=== PATIENT | female | born 1975 | race Caucasian/White ===

== ENCOUNTER 2020-10-25 21:15 | Inpatient (IN) | payer OTHER ==
[~2020-10-25] VITALS: Ht 165.1 cm; Wt 74.8 kg
[2020-10-25] MEDS ORDERED: MECLIZINE HCL 25 MG TABLET PO ONE (21:30)
--- NOTE | 2020-10-25 21:32 | NUR ---
Patient walked into ER with steady gait speaking with clear speech c/o sudden onset of dizziness that started 2hrs [employer]. Denies N/V.
--- NOTE | 2020-10-25 21:50 | NUR ---
Patient out of unit for CT scan via [facility].
[2020-10-25 21:54] LABS: BASOPHILS % (AUTO) 0.4 % (0.0-2.0); EOSINOPHILS # (AUTO) 0.1 K/uL (0.0-0.7); EOSINOPHILS % (AUTO) 1.1 % (0.0-7.0); HEMATOCRIT 38.7 % (31.2-41.9); LYMPHOCYTES # (AUTO) 2.3 K/uL (20.0-40.0); MEAN CORPUSCULAR HEMOGLOBIN 30.5 uug (24.7-32.8); MEAN CORPUSCULAR HGB CONC 34 g/dL (32.3-35.6); MONOCYTES # (AUTO) 0.6 K/uL (2.0-10.0); NEUTROPHILS # (AUTO) 3.4 K/uL (1.8-8.9); NEUTROPHILS % (AUTO) 52.5 % (38.5-71.5); PLATELET COUNT (AUTO) 381 K/uL (179-408); RED BLOOD CELL COUNT(AUTO) 4.25 MIL/uL (3.63-4.92); WHITE BLOOD COUNT (AUTO) 6.4 K/uL (3.8-11.8)
[2020-10-25 21:59] LABS: CARBON DIOXIDE 27 mmol/L (21-32); CHLORIDE 104 mmol/L (98-107); CREATININE 0.7 mg/dL (0.6-1.3); GLUCOSE 110 mg/dL (74-106); POTASSIUM 3.5 mmol/L (3.5-5.1); UREA NITROGEN, BLOOD 12 mg/dL (7-18)
[2020-10-25] MEDS ORDERED: ONDANSETRON 4 MG/2 ML VIAL ONE ×2 (21:59→22:35)
[2020-10-25] MEDS ORDERED: IV NORMAL SALINE 250 ML IV ONE (22:00)
[2020-10-25] MEDS ORDERED: SWABABLE VALVE TRANSFER SET EA MC ONE (22:00)
[2020-10-25] MEDS ORDERED: IOHEXOL 350 100 ML INFUS..BTL ONE (22:00)
[2020-10-25 22:05] LABS: ETHANOL < 3 MG/DL (0-0)
[2020-10-25 22:08] LABS: ALANINE AMINOTRANSFERASE 37 U/L (14-59); ALKALINE PHOSPHATASE 73 U/L (50-136); ASPARTATE AMINOTRANSFERASE 22 U/L (15-37); BILIRUBIN,DIRECT 0.1 mg/dL (0.0-0.2); BILIRUBIN,TOTAL 0.2 mg/dL (0.2-1.0); TOTAL PROTEIN, SERUM 7.4 g/dL (6.4-8.2)
--- NOTE | 2020-10-25 22:09 | NUR ---
Patient back from ct scan with no distress noted.
--- NOTE | 2020-10-25 22:10 | NUR ---
Tele neurologist into eval patient via [facility] [employer].
[2020-10-25] MEDS ORDERED: ONDANSETRON 4 MG/2 ML VIAL IV ONE ×2 (22:30→22:45)
[2020-10-25 23:56] LABS: *BILIRUBIN,URIN NEGATIVE (NEGATIVE); *CLARITY,URINE CLEAR (CLEAR); *COLOR,URINE YELLOW (YELLOW); *KETONES,URINE NEGATIVE (NEGATIVE); *UROBILINOGEN,URINE 0.2 E.U./dl (NORMAL); LEUKOCYTE ESTERASE ,URINE TRACE (NEGATIVE); NITRITE, URINE NEGATIVE (NEGATIVE); PH,URINE 7.5 (5.0-8.0); UGLUCOSE NEGATIVE (NEGATIVE)
[2020-10-25 23:59] LABS: *BLOOD, URINE TRACE (NEGATIVE)
[2020-10-26 00:10] LABS: BACTERIA,URINE NONE SEEN /HPF (NONE SEEN); SQUAMOUS EPITHELIAL CELL,UR FEW /HPF (NONE SEEN); WBC,URINE 0-3 /HPF (0-3)
[2020-10-26 00:11] LABS: *URINE HCG, QUAL NEGATIVE (NEGATIVE)
[2020-10-26 00:16] LABS: *AMPHETAMINE, URINE NEGATIVE (NEGATIVE); *CANNABINOID, URINE NEGATIVE (NEGATIVE); *COCCAINE, URINE NEGATIVE (NEGATIVE); *OPIATE, URINE NEGATIVE (NEGATIVE); *PHENCYCLIDINE SCREEN,URINE NEGATIVE (NEGATIVE)
--- NOTE | 2020-10-26 01:25 | NUR ---
Epic panel call placed, spoke to Lloyd , he stated she will get a hold of Dr. Gonsales for admitting.
--- NOTE | 2020-10-26 01:46 | NUR ---
2nd call made to [employer] got panel call. Awaiting for return call from Dr. Gonsales.
--- NOTE | 2020-10-26 01:54 | NUR ---
Dr. Markham on panel call with Dr. Gonsales. Patient accepted for admission to Tele Unit. Dx Intractable Dizziness.
--- NOTE | 2020-10-26 02:39 | NUR ---
Pt. admitted to Tele unit, room 310, under care of Dr. Gonsales. Belongs List completed.
[2020-10-26 03:31] VITALS: BP 115/67
[2020-10-26] MEDS ORDERED: ACETAMINOPHEN 325 MG TABLET PO PRN (03:45)
[2020-10-26] MEDS ORDERED: ONDANSETRON 4 MG/2 ML VIAL IV PRN (03:45)
[2020-10-26 04:25] VITALS: BP 101/73
[2020-10-26 05:50] LABS: BASOPHILS % (AUTO) 0.3 % (0.0-2.0); EOSINOPHILS % (AUTO) 0.4 % (0.0-7.0); HEMATOCRIT 38.5 % (31.2-41.9); HEMOGLOBIN 12.9 g/dL (10.9-14.3); LYMPHOCYTES # (AUTO) 1.5 K/uL (20.0-40.0); MEAN CORPUSCULAR HEMOGLOBIN 30.1 uug (24.7-32.8); MEAN CORPUSCULAR HGB CONC 34 g/dL (32.3-35.6); MEAN CORPUSCULAR VOLUME 89.9 fL (75.5-95.3); MONOCYTES # (AUTO) 0.6 K/uL (2.0-10.0); MONOCYTES % (AUTO) 8.5 % (0.0-11.0); NEUTROPHILS # (AUTO) 4.7 K/uL (1.8-8.9); NEUTROPHILS % (AUTO) 68.8 % (38.5-71.5); PLATELET COUNT (AUTO) 407 K/uL (179-408); RED BLOOD CELL COUNT(AUTO) 4.28 MIL/uL (3.63-4.92); WHITE BLOOD COUNT (AUTO) 6.8 K/uL (3.8-11.8)
[2020-10-26 06:03] LABS: BILIRUBIN,TOTAL 0.3 mg/dL (0.2-1.0); CREATININE 0.7 mg/dL (0.6-1.3); MAGNESIUM 2.3 mg/dL (1.8-2.4); PHOSPHOROUS 3.1 mg/dL (2.5-4.9); POTASSIUM 4.4 mmol/L (3.5-5.1); TOTAL PROTEIN, SERUM 7.3 g/dL (6.4-8.2)
[2020-10-26 06:11] LABS: THYROID STIMULATING HORMONE 1.647 mIU/mL (0.358-3.740)
[2020-10-26] MEDS ORDERED: MECLIZINE HCL 25 MG TABLET PO PRN (06:30)
--- NOTE | 2020-10-26 06:58 | NUR ---
Pt admitted to room 310; neuro and CV stable; needs attended; admission procedures done; continue to monitor; needs attended.
--- NOTE | 2020-10-26 08:00 | NUR ---
RECEIVED PATIENT IN BED AWAKE ALERT AND ORIENTED ON ROOM AIR WITH NO SHORTNESS OF BREATH AT THIS TIME DENIES FEELING DIZZY TELE IS SR CALL LIGHTS AND HER PERSONAL BELONGINGS ARE WITHIN EASY REACH MADE COMFORTABLE NOT IN DISTRESS AT THIS TIME
--- NOTE | 2020-10-26 09:25 | NUR ---
SPOKE WITH PATIENT RE HOME MEDICATIONS STATED DID NOT TAKE ANY MEDS.
[2020-10-26 11:23] VITALS: BP 93/54
--- NOTE | 2020-10-26 11:45 | NUR ---
PHYSICAL THERAPY SEEN PATIENT FOR EVAL ABLE TO AMBULATE THE THERAPIST STATED THAT HER ENDURANCE IS GOOD AND OKAY TO BE DISCHARGED FROM A PHYSICAL THERAPY STAND POINT BUT PATIENT IS COMPLAINING OF SORE THROAT SO I CALLED DR CHILDERS AND NOTIFIED HIM AND HE STATED OKAY WILL COME BACK AND SEE PATIENT.
--- NOTE | 2020-10-26 12:50 | NUR ---
DR CHILDERS HERE AND SEEN PATIENT WITH NO NEW ORDERS STATED IT WAS OKAY TO DISCHARGE PATIENT STATED THAT IF HER SORE THROAT CONTINUES TO FOLLOW UP WITH HER PRIMARY DOCTOR AND PATIENT EXPRESSED UNDERSTANDING.
--- NOTE | 2020-10-26 14:00 | NUR ---
PATIENT DISCHARGED WITH DISCHARGE INSTRUCTIONS AND WAS INSTRUCTED TO CALL FOR A FOLLOW UP APPOINTMENT WITH HER PRIMARY DOCTOR WITHIN THE NEXT ONE TO TWO WEEKS AND SHE EXPRESSED UNDERSTANDING PATIENT WHEELED OUT BY W/CHAIR TO HER CAR CAR PARKED IN THE PARKING LOT WITH ALL HER PERSONAL PROPERTIES.
== END 2020-10-26 14:00 | disposition home or self-care (01) | DRG 54 ==
LOC: ER 21:19 → TELE3 10-26 02:13
PROVIDERS: ADMIT Internal Medicine; ATTEND Internal Medicine
DX: G43.909 Migraine, unspecified, not intractable, without status migrainosus (principal); H81.399 Other peripheral vertigo, unspecified ear; R20.0 Anesthesia of skin; Z20.822 Contact with and (suspected) exposure to COVID-19
CPT/HCPCS: 36415; 70030-TC; 70450; 70496; 83735; 84100; 84443; 84703; 85025; 93005; G0378; G0480; J2405; J7050; J8597; Q9967